=== PATIENT | male | born 1945 | race Caucasian/White ===

== ENCOUNTER 2016-07-07 15:02 | Inpatient (IN) | payer MEDICARE, OTHER ==
[2016-07-07] MEDS ORDERED: IOPAMIDOL 370 (76%) 100 ML VIAL IV ONE (15:03)
[2016-07-07] MEDS ORDERED: IPRATROPIUM BROMIDE 0.5 MG/2.5 ML DOSE ONE (15:09)
[2016-07-07] MEDS ORDERED: ALBUTEROL SULFATE 5MG/ML INHALANT 20 ML BOT ONE (15:09)
[2016-07-07] MEDS ORDERED: SODIUM CL FOR INHALATION 3 ML DOSE ONE (15:10)
--- NOTE | 2016-07-07 15:35 | RAD ---
Exam: Portable chest COMPARISON: None INDICATION: Shortness of breath. Findin semierect AP portable views of the chest demonstrate findings of underlying obstructive airways disease. Cardiac silhouette is within normal limits. There is no focal airspace disease or pleural effusion. No pneumothorax is identified. Bones of the chest wall are intact. IMPRESSION: Obstructive airways disease, however no acute pulmonary process is identified.
[2016-07-07 15:43] LABS: ABSOLUTE NEUTROPHIL COUNT 7.9 K/mm3 (1.8-7.7); BASO # 0.1 K/mm3 (0.0-0.2); BASO % 0.5 % (0.2-1.0); EOS # 0.3 (0.0-0.5); EOS % 2.5 % (0.9-2.9); HEMATOCRIT 35.4 % (32.0-52.0); HEMOGLOBIN 11.1 gm/l (14.0-18.0); IMM NEUT% 0.4 % (0-1); LYMPH # 1.7 (1.0-4.8); MEAN CELL VOLUME 87.6 fl (80.0-94.0); MEAN CORPUSCULAR HEMOGLOBIN 27.5 pg (27.0-31.0); MEAN CORPUSCULAR HGB CONC 31.4 g/dl (33.0-37.0); MEAN PLATELET VOLUME 10.1 fl (7.4-10.4); MONO # 1.2 (0.0-0.8); MONO % 10.4 % (4-12); NEUT % 71.2 % (43-75); PLATELET COUNT 438 K/mm3 (130-400); RED CELL DISTRIBUTION WIDTH 12.9 % (11.5-14.5)
[2016-07-07 16:04] LABS: ALB/GLOB RATIO 1.3 (>1.0); ALBUMIN 4.4 gm/dL (3.5-5.7); CALCIUM 9.2 mg/dL (8.6-10.3)
[2016-07-07] MEDS ORDERED: MAGNESIUM SULFATE 1 G/100 ML 200 ML IV ONE (16:18)
[2016-07-07] MEDS ORDERED: METHYLPRED SOD SUCCINATE 125 MG VIAL ONE (16:27)
[2016-07-07 16:38] LABS: ARTERIAL BLOOD GAS BASE EXCESS -5.3 mmol/L (-2.0-2.0); ARTERIAL BLOOD GAS HCO3 20.9 mmol/L (22.0-28.0); ARTERIAL BLOOD GAS PCO2 43.7 mmHg (35.0-45.0); ARTERIAL BLOOD GAS PO2 91.3 mmHg (80.0-90.0); ARTERIAL BLOOD GAS pH 7.298 (7.350-7.450)
--- NOTE | 2016-07-07 17:50 | CT ---
CTA CHEST FOR PE COMPARISON: Portable chest x-ray, 07/07/2016 HISTORY: Shortness of breath. Technique: Intravenous injection 80 mL [id number]-370. Using a [employer] Aquilion [address] scanner, following a CT angiogram protocol, images obtained through the thorax. Under concurrent supervision and interpretation, requiring a separate 3-D workstation, the technologist created 3-D CT angiograms. An automated dose reduction technique was used to minimize patient radiation dose. Dose information: CTDIvol (mGy): 7.70, 119.10, 10.60 DLP(mGycm): 481.70 FINDINGS: Pulmonary arteries and veins: Excellent contrast opacification. No pulmonary embolism. Aorta: Normal Heart and coronary arteries: Atherosclerotic calcification. Lungs: Severe emphysema. Scarring in the right lung apex. No mass. No infiltrate. Trachea and bronchi: Normal. Mediastinum and dannie: Normal. Pleura and pericardium: Normal. Chest wall: Normal. Spine: Old compression fractures of T9 and L1. Upper abdomen:Normal. 3-D CT angiogram: Normal. IMPRESSION: 1. CT pulmonary negative for pulmonary embolism. 2. Severe emphysema with scarring in the right lung apex. No mass or infiltrate. 3. Old compression fractures of the T9 and L1 vertebral bodies. The report was sent to the emergency department electronic medical record system 07/07/2016 at 17:51
[2016-07-07] MEDS ORDERED: LACTATED RINGERS 1,000 ML ONE (17:54)
[2016-07-07] MEDS ORDERED: AZITHROMYCIN 500 MG VIAL ONE (18:19)
[2016-07-07] MEDS ORDERED: SODIUM CHLORIDE 0.9% 250 ML IV ONE (18:20)
[2016-07-07] MEDS ORDERED: PNEUMOCOCCAL 23-VAL P-SAC VAC 0.5 ML VIAL IM V ONE (21:03)
[2016-07-07] MEDS ORDERED: ACETAMINOPHEN 325 MG TABLET PO PRN (21:20)
[2016-07-07] MEDS ORDERED: SODIUM CHLORIDE 0.9% 100 ML IV PRN (21:20)
[2016-07-07] MEDS ORDERED: MAGNESIUM HYDROXIDE 30 ML UDCUP PO PRN (21:20)
[2016-07-07] MEDS ORDERED: MENTHOL/CETYLPYRD 1 EACH LOZENGE PO PRN (21:20)
[2016-07-07] MEDS ORDERED: BISACODYL 10 MG SUP PR PRN (21:20)
[2016-07-07] MEDS ORDERED: BISACODYL 5 MG TABLET.EC PO PRN (21:20)
[2016-07-07] MEDS ORDERED: BLISTEX LIPSTICK 1 EACH TP PRN (21:20)
[2016-07-07] MEDS ORDERED: ONDANSETRON 4 MG/2ML 2 ML VIAL IV PRN (21:24)
[2016-07-07] MEDS ORDERED: PUMP TUBING ONE (22:08)
[2016-07-07] MEDS: SENNA/DOCUSATE SODIUM 8.6/50 MG EACH TABLET PO SCH (22:25)
[2016-07-07] MEDS: ENOXAPARIN SODIUM 30 MG/0.3 ML SYRINGE SUB-Q SCH (22:25)
[2016-07-07] MEDS: FLUTICASONE/SALMETEROL 250/50 14 PUFFS/DISK IH SCH (22:26)
[2016-07-07] MEDS: ACETAMINOPHEN 325 MG TABLET PO SCH (22:27)
[2016-07-07] MEDS: MELATONIN 3 MG TABLET PO PRN (22:27)
[2016-07-07] MEDS: DIPHENHYDRAMINE HCL 25 MG CAPSULE PO SCH (22:27)
[2016-07-07] MEDS: PANTOPRAZOLE 40 MG TABLET DR PO SCH (22:28)
[2016-07-07] MEDS: GABAPENTIN 100 MG CAPSULE PO SCH (22:28)
[2016-07-07] MEDS: SODIUM CHLORIDE 0.9% 1,000 ML IV SCH (22:29)
[2016-07-07] MEDS: DOCUSATE SODIUM 100 MG CAPSULE PO SCH (22:29)
[2016-07-07] MEDS: MIRTAZAPINE 15 MG TABLET PO SCH (22:29)
[2016-07-08] MEDS: METHYLPRED SOD SUCCINATE 40 MG VIAL IV SCH ×4 (00:40→17:22)
[2016-07-08] MEDS: ALBUTEROL NEB 2.5 MG/3 ML VIAL.NEB NEB PRN ×2 (03:41→18:32)
[2016-07-08 05:09] VITALS: BMI 20.3
[2016-07-08 05:49] LABS: HEMATOCRIT 27.5 % (32.0-52.0); HEMOGLOBIN 8.6 gm/l (14.0-18.0); MEAN CELL VOLUME 87.3 fl (80.0-94.0); MEAN CORPUSCULAR HEMOGLOBIN 27.3 pg (27.0-31.0); MEAN CORPUSCULAR HGB CONC 31.3 g/dl (33.0-37.0)
[2016-07-08 06:16] LABS: ALB/GLOB RATIO 1.4 (>1.0); ALBUMIN 3.5 gm/dL (3.5-5.7); CALCIUM 8.5 mg/dL (8.6-10.3)
--- NOTE | 2016-07-08 06:53 | HP ---
Meir Palmer ADMIT DATE: 07/07/2016 CHIEF COMPLAINT: Shortness of breath. HISTORY OF PRESENT ILLNESS: Meir is a 70-year-old male with known severe chronic obstructive pulmonary disease/emphysema. He is a resident at [facility]. Today earlier he had onset of shortness of breath that was unresponsive to his nebulizers, so he came to the emergency room for evaluation. In the emergency room he was found to be in respiratory distress. He was treated with aggressive nebulizers, Solu-Medrol, and eventually IV magnesium as well which did seem to calm his symptoms. Workup was for the most part negative otherwise and it was felt that he was having a chronic obstructive pulmonary disease exacerbation. It was elected to admit him to the hospitalist service. REVIEW OF SYSTEMS: As noted above otherwise, negative. PAST MEDICAL HISTORY: 1. Chronic obstructive pulmonary disease/emphysema. 2. Chronic kidney disease stage III with a baseline creatinine around 2.0. 3. 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 Last [facility] evaluation was scored at 15/30, this was in September 2015. 4. History of multiple strokes in the past, further details unavailable. 5. Hypertension. 6. Longstanding alcoholism, though he has had no alcohol since September 2015. 7. 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 8. Depression. 9. Insomnia. 10. Benign prostatic hypertrophy. PAST SURGICAL HISTORY: 1. Nephrectomy due to donating a kidney to a relative, this was in the distant past. 2. Lumbar spine surgery. ALLERGIES: No known drug allergies. CURRENT MEDICATIONS: 1. Mirtazapine 7.5 mg by mouth at bedtime. 2. Melatonin 3 mg by mouth at bedtime. 3. Neurontin 100 mg by mouth at bedtime. 4. Diphenhydramine 50 mg by mouth at bedtime. 5. Senna/docusate 2 tablets by mouth twice daily. 6. Tylenol 650 by mouth at bedtime. 7. Omeprazole 20 mg by mouth twice daily. 8. Hydrochlorothiazide/triameterene 50/75 one by mouth daily. 9. Advair 250/50 one inhaled twice daily. 10. MiraLax 17 gm by mouth daily. 11. Mucinex 600 mg by mouth daily. 12. Boost supplement daily. 13. Folate 1 mg by mouth daily. 14. Aspirin 81 mg by mouth daily. 15. Amlodipine 5 mg by mouth daily. SOCIAL HISTORY: He has about a 90 pack year history of smoking, though he quit back in 05/23. He is a resident of [facility] and has been for about the last six months. Prior to that he lived in his own house up in [place] near [place]. 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 OBJECTIVE: VITAL SIGNS: Blood pressure 168/81, pulse is in the 90's, O2 sat 96% on 1 liter, respirations 20 and unlabored. GENERAL: A thin elderly male. At the time I examine him he is calm, bad speaking in false sentences, in no acute distress. HEENT: Normocephalic, atraumatic. Tympanic membranes intact. Oropharynx moist. NECK: Supple. No jugular venous distention. LUNGS: He has distant sounds in all snowden bilaterally, but no wheezes, rales, or rhonchi. HEART: Regular rate and rhythm. ABDOMEN: Soft, nontender, nondistended. No rebound or guarding. EXTREMITIES: No edema. LABORATORY: CBC with a white count of 11.1, hemoglobin 11.1, hematocrit 35.4, platelets 438. Chemistry panel, sodium 129, potassium 5.1, chloride 96, carbon dioxide 25, BUN of 33, creatinine 2.0, glucose of 113, magnesium 2.6. Total bilirubin 0.2, AST 21, ALT 18, alk phos 101. CK-MB of 5.2. ABG with a pH of 7.29, PO2 of 91.3, pCO2 of 43.8, lactate of 0.7. Urinalysis is pending. DIAGNOSTICS: CT angiogram of the chest is negative for pulmonary emboli, shows severe emphysema and some chronic old compression fractures at T9 and L1. ASSESSMENT: 1. Chronic obstructive pulmonary disease exacerbation. 2. Mild hyponatremia. 3. Mild hyperkalemia. 4. Multiple other chronic medical problems at baseline including chronic kidney disease stage III, dementia, hypertension, peripheral neuropathy. PLAN: He is [place] [facility] Will continue with the IV Solu-Medrol, IV azithromycin, nebulizers and supportive care as needed. Will continue with his regular medications as above. Lovenox for deep venous thrombosis prophylaxis. Further care is dictated by clinic course. JOB: [id number] CC: Dr. Nima Dwyer
[2016-07-08] MEDS: ALBUTEROL/IPRATROPIUM 2.5/0.5 MG 3 ML/EACH DOSE NEB SCH ×4 (08:08→20:45)
[2016-07-08] MEDS: SENNA/DOCUSATE SODIUM 8.6/50 MG EACH TABLET PO SCH ×2 (09:00→20:14)
[2016-07-08] MEDS: SODIUM CHLORIDE 0.9% 1,000 ML IV SCH ×3 (09:17→14:36)
[2016-07-08] MEDS: GUAIFENESIN 600 MG TABLET.DR PO SCH (09:18)
[2016-07-08] MEDS: FOLIC ACID 1 MG TABLET PO SCH (09:18)
[2016-07-08] MEDS: ASPIRIN (ENTERIC COATED) 81 MG TABLET.EC PO SCH (09:18)
[2016-07-08] MEDS: AMLODIPINE BESYLATE 5 MG TABLET PO SCH (09:18)
[2016-07-08] MEDS: PANTOPRAZOLE 40 MG TABLET DR PO SCH ×2 (09:18→20:14)
[2016-07-08] MEDS: DOCUSATE SODIUM 100 MG CAPSULE PO SCH ×2 (09:18→20:14)
--- NOTE | 2016-07-08 09:52 | PDOC43 ---
- Subjective Chief Complaint: SOB Feeling better this AM but still SOB and weak. Subjective: Reports Tolerating Diet Well, Reports Adequate Oral Intake, Denies Chest Pain, Denies Abdominal Pain, Denies Nausea, Denies Vomiting, Denies Fever , Denies Chills - Objective Vital Signs Temperature 97.7 F 07/08/16 07:40 Pulse Rate 85 07/08/16 08:09 Respiratory Rate 26 07/08/16 08:09 Blood Pressure 104/60 07/08/16 07:40 O2 Saturation by Pulse Oximetry 92 07/08/16 08:09 Oxygen Delivery Method Room Air Oxygen Flow Rate 0 Intake and Output 07/07/16 07/08/16 07/09/16 06:59 06:59 06:59 Intake Total 2293 Output Total 425 Balance 1868 General: Alert, Oriented x3, Cooperative, No Acute Distress HEENT: Atraumatic Lungs: Clear to Auscultation Bilaterally, Other (Poor air movement all snowden B. ) Cardiovascular: Regular Rate and Rhythm Abdomen: Soft, Normal Bowel Sounds, Non-Distended, No Tenderness Extremities: Normal Pulses, No Edema, No Tenderness Laboratory 07/08/16 05:30 07/08/16 05:30 Laboratory Tests 07/08/16 05:30 Total Bilirubin 0.2 AST 15 ALT 12 Alkaline Phosphatase 75 Troponin I < 0.01 Current Medications: Current meds reviewed in EMR. - Problems: Assessment/Plan (1) COPD (chronic obstructive pulmonary disease) Qualifiers: COPD type: COPD with acute exacerbation Qualifier Code: (J44.1) Chronic obstructive pulmonary disease with (acute) exacerbation Status: AcuteAssessment/Plan: Acute flare at admit with hypoxic respiratory failure. Much improved this AM. Con't steroids, nebs, azithro, supportive care. (2) CKD (chronic kidney disease) stage 3, GFR 30-59 ml/min Status: ChronicAssessment/Plan: At baseline. Single kidney status d/t donating in distant past. Avoid nephrotoxic agents. (3) ETOHism Status: ChronicAssessment/Plan: In remission. Complicated by dementia and peripheral neuropathy presumed d/t etoh. No h/o withdrawal. (4) Dementia Qualifiers: Dementia behavioral disturbance: without behavioral disturbance Status: ChronicAssessment/Plan: As above. (5) Peripheral neuropathy Qualifiers: Peripheral neuropathy type: polyneuropathy, unspecified Qualifier Code : (G62.9) Polyneuropathy, unspecified Status: ChronicAssessment/Plan: As above. (6) HTN (hypertension) Qualifiers: Hypertension type: essential hypertension Qualifier Code: (I10) Essential (primary) hypertension Status: ChronicAssessment/Plan: Stable on usual amlodipine. (7) Depression Qualifiers: Depression Type: unspecified Qualifier Code: (F32.9) Major depressive disorder, single episode, unspecified Status: ChronicAssessment/Plan: Stable. Con't usual regimen. VTE Prophylaxis: Lovenox. Disposition: Anticipate d/c to SNF in 1-2 days.
[2016-07-08] MEDS ORDERED: PUMP TUBING ONE ×3 (11:34→17:38)
[2016-07-08] MEDS: FLUTICASONE/SALMETEROL 250/50 14 PUFFS/DISK IH SCH ×2 (12:59→22:02)
[2016-07-08] MEDS: POLYETHYLENE GLYCOL 3350 17 G POWD.SUSP PO SCH (13:00)
[2016-07-08] MEDS ORDERED: IV START KIT ONE (14:07)
[2016-07-08] MEDS ORDERED: SODIUM CHLORIDE 0.9% FLUSH 10 ML ONE (14:07)
[2016-07-08] MEDS ORDERED: AZITHROMYCIN 500 MG in SODIUM CHLORIDE 0.9% 250 ML IV SCH (17:30)
[2016-07-08] MEDS ORDERED: DIPHENHYDRAMINE HCL 50 MG/1 ML VIAL IV PRN (17:35)
--- NOTE | 2016-07-08 17:39 | PDOC36 ---
Provider Note Subject: Medication reaction Note: Patient had flushing and facial rash develop shortly after starting Azithromycin IV. Med stopped, allergy recorded, changed to doxycycline for treatment of COPD exacerbation.
[2016-07-08] MEDS: DOXYCYCLINE HYCLATE 100 MG in NS 0.9% (MINI-BAG PLUS) 100 ML IV SCH (18:27)
[2016-07-08] MEDS: MIRTAZAPINE 15 MG TABLET PO SCH (20:13)
[2016-07-08] MEDS: GABAPENTIN 100 MG CAPSULE PO SCH (20:14)
[2016-07-08] MEDS: ACETAMINOPHEN 325 MG TABLET PO SCH (20:15)
[2016-07-08] MEDS: ENOXAPARIN SODIUM 30 MG/0.3 ML SYRINGE SUB-Q SCH (22:03)
[2016-07-08] MEDS: MELATONIN 3 MG TABLET PO PRN (22:03)
[2016-07-08] MEDS: DIPHENHYDRAMINE HCL 25 MG CAPSULE PO SCH (22:04)
[2016-07-09] MEDS: METHYLPRED SOD SUCCINATE 40 MG VIAL IV SCH ×4 (00:37→18:01)
[2016-07-09] MEDS: DOXYCYCLINE HYCLATE 100 MG in NS 0.9% (MINI-BAG PLUS) 100 ML IV SCH ×2 (06:10→18:02)
[2016-07-09 06:13] LABS: HEMATOCRIT 26.3 % (32.0-52.0); HEMOGLOBIN 8.4 gm/l (14.0-18.0); MEAN CELL VOLUME 86.5 fl (80.0-94.0); MEAN CORPUSCULAR HEMOGLOBIN 27.6 pg (27.0-31.0); MEAN CORPUSCULAR HGB CONC 31.9 g/dl (33.0-37.0); RED CELL DISTRIBUTION WIDTH 13.2 % (11.5-14.5)
[2016-07-09] MEDS: ALBUTEROL NEB 2.5 MG/3 ML VIAL.NEB NEB PRN ×2 (06:16→08:07)
[2016-07-09 06:32] LABS: ALB/GLOB RATIO 1.4 (>1.0); ALBUMIN 3.3 gm/dL (3.5-5.7); CALCIUM 8.3 mg/dL (8.6-10.3)
[2016-07-09] MEDS: SODIUM CHLORIDE 0.9% 1,000 ML IV SCH ×2 (08:01→08:30)
[2016-07-09] MEDS: ALBUTEROL/IPRATROPIUM 2.5/0.5 MG 3 ML/EACH DOSE NEB SCH ×4 (08:30→20:24)
[2016-07-09] MEDS: POLYETHYLENE GLYCOL 3350 17 G POWD.SUSP PO SCH (09:09)
[2016-07-09] MEDS: FLUTICASONE/SALMETEROL 250/50 14 PUFFS/DISK IH SCH ×2 (09:09→21:35)
[2016-07-09] MEDS: GUAIFENESIN 600 MG TABLET.DR PO SCH (09:10)
[2016-07-09] MEDS: FOLIC ACID 1 MG TABLET PO SCH (09:10)
[2016-07-09] MEDS: DOCUSATE SODIUM 100 MG CAPSULE PO SCH ×2 (09:10→21:36)
[2016-07-09] MEDS: PANTOPRAZOLE 40 MG TABLET DR PO SCH ×2 (09:10→21:36)
[2016-07-09] MEDS: ASPIRIN (ENTERIC COATED) 81 MG TABLET.EC PO SCH (09:10)
[2016-07-09] MEDS: SENNA/DOCUSATE SODIUM 8.6/50 MG EACH TABLET PO SCH ×2 (09:10→21:36)
[2016-07-09] MEDS: AMLODIPINE BESYLATE 5 MG TABLET PO SCH (09:14)
--- NOTE | 2016-07-09 11:41 | PDOC43 ---
- Subjective Chief Complaint: SOB per pt doing ok now. he notes a bad flare with SOB and cough this am which he states scared him. was as bad as when he came in. neb was helpful. he requests ability to use his inhaler from home, but is on nebs scheduled and PRN. he is asking for them regularly he states. no issues with diet. he is feeling constipated and requests suppository. he states this at home typically gets him to go. Subjective: Reports Pain Tolerable, Reports Tolerating Diet Well, Reports Adequate Oral Intake, Reports Flatus, Reports Urinating Without Difficulty, Reports Shortness of Breath, Reports Cough, Denies Bowel Movement, Denies Chest Pain, Denies Abdominal Pain, Denies Nausea, Denies Vomiting, Denies Fever, Denies Chills - Objective Vital Signs Temperature 97.5 F 07/09/16 07:00 Pulse Rate 87 07/09/16 08:30 Respiratory Rate 20 07/09/16 08:30 Blood Pressure 94/58 07/09/16 07:00 O2 Saturation by Pulse Oximetry 96 07/09/16 08:30 Oxygen Delivery Method Room Air Oxygen Flow Rate 0 Intake and Output 07/07/16 07/08/16 07/09/16 23:59 23:59 23:59 Intake Total 2293 1341 Output Total 425 767 Balance -425 2293 574 General: Alert, Oriented x3, Cooperative, No Acute Distress HEENT: Atraumatic, Mucous membr. moist/pink Lungs: No Clear to Auscultation Bilaterally (difuse severe decreased breath sounds and wheezing throughout), No Normal Air Movement Cardiovascular: Regular Rate and Rhythm, Normal S1, Normal S2, No Murmur Abdomen: Soft, Normal Bowel Sounds, Non-Distended, No Tenderness Extremities: No Cyanosis, No Edema, No Tenderness Skin: Warm, Dry, Intact Neurological: Normal Speech Psych/Mental Status: Normal Affect, Normal Mood Laboratory 07/09/16 05:30 07/09/16 05:30 07/09/16 05:30 RBC 3.04 L MCHC 31.9 L BUN 37 H Estimated GFR 40 L Calcium 8.3 L Total Protein 5.6 L Albumin 3.3 L Current Medications: Current meds reviewed in EMR. - Problems: Assessment/Plan (1) COPD (chronic obstructive pulmonary disease) Qualifiers: COPD type: COPD with acute exacerbation Qualifier Code: (J44.1) Chronic obstructive pulmonary disease with (acute) exacerbation Status: AcuteAssessment/Plan: Acute flare at admit with hypoxic respiratory failure. Much improved with a flare this AM. Con't steroids, nebs, supportive care. had a rash after 2nd dose of azithro, so now on doxy. (2) CKD (chronic kidney disease) stage 3, GFR 30-59 ml/min Status: ChronicAssessment/Plan: At baseline. Single kidney status d/t donating in distant past. Avoid nephrotoxic agents. (3) Dementia Qualifiers: Dementia behavioral disturbance: without behavioral disturbance Status: ChronicAssessment/Plan: As above. (4) ETOHism Status: ChronicAssessment/Plan: In remission. Complicated by dementia and peripheral neuropathy presumed d/t etoh. No h/o withdrawal. lives at [facility] (5) Peripheral neuropathy Qualifiers: Peripheral neuropathy type: polyneuropathy, unspecified Qualifier Code : (G62.9) Polyneuropathy, unspecified Status: ChronicAssessment/Plan: As above. (6) Depression Qualifiers: Depression Type: unspecified Qualifier Code: (F32.9) Major depressive disorder, single episode, unspecified Status: ChronicAssessment/Plan: Stable. Con't usual regimen. (7) HTN (hypertension) Qualifiers: Hypertension type: essential hypertension Qualifier Code: (I10) Essential (primary) hypertension Status: ChronicAssessment/Plan: Stable on usual amlodipine. VTE Prophylaxis: Lovenox. Disposition: Anticipate d/c to SNF in 2 days.
[2016-07-09] MEDS: ENOXAPARIN SODIUM 40 MG/0.4 ML SYRINGE SUB-Q SCH (21:36)
[2016-07-09] MEDS: ACETAMINOPHEN 325 MG TABLET PO SCH (21:36)
[2016-07-09] MEDS: GABAPENTIN 100 MG CAPSULE PO SCH (21:36)
[2016-07-09] MEDS: MIRTAZAPINE 15 MG TABLET PO SCH (21:37)
[2016-07-10] MEDS: MELATONIN 3 MG TABLET PO PRN ×2 (00:04→23:55)
[2016-07-10] MEDS: METHYLPRED SOD SUCCINATE 40 MG VIAL IV SCH ×5 (00:04→23:55)
[2016-07-10] MEDS: DIPHENHYDRAMINE HCL 25 MG CAPSULE PO SCH ×2 (00:04→23:55)
[2016-07-10] MEDS: ALBUTEROL NEB 2.5 MG/3 ML VIAL.NEB NEB PRN ×2 (00:18→07:36)
[2016-07-10] MEDS: SODIUM CHLORIDE 0.9% 1,000 ML IV SCH (03:10)
[2016-07-10] MEDS: DOXYCYCLINE HYCLATE 100 MG in NS 0.9% (MINI-BAG PLUS) 100 ML IV SCH ×2 (06:22→18:01)
--- NOTE | 2016-07-10 07:08 | PDOC43 ---
- Subjective Chief Complaint: SOB pt doing well per report. he had some SOB last night, resolved with neb. fluids DCed as well. he feels better this AM. no new issues. coughing improved Subjective: Reports Pain Tolerable, Reports Tolerating Diet Well, Reports Adequate Oral Intake, Reports Bowel Movement, Reports Urinating Without Difficulty, Reports Shortness of Breath, Reports Cough, Denies Chest Pain, Denies Abdominal Pain, Denies Nausea, Denies Vomiting, Denies Fever, Denies Chills - Objective Vital Signs Temperature 97.3 F 07/10/16 00:52 Pulse Rate 80 07/10/16 05:00 Respiratory Rate 16 07/10/16 05:00 Blood Pressure 107/60 07/10/16 05:00 O2 Saturation by Pulse Oximetry 95 07/10/16 05:00 Oxygen Delivery Method Room Air Oxygen Flow Rate 0 Intake and Output 07/08/16 07/09/16 07/10/16 23:59 23:59 23:59 Intake Total 2293 2767 1500 Output Total 1517 700 Balance 2293 1250 800 General: Alert, Oriented x3, Cooperative, No Acute Distress HEENT: Atraumatic, Mucous membr. moist/pink Lungs: No Clear to Auscultation Bilaterally (decreased BL throughout. improved from yesterday. wheezing diffuse), No Normal Air Movement Cardiovascular: Regular Rate and Rhythm, Normal S1, Normal S2, No Murmur Abdomen: Soft, Normal Bowel Sounds, Non-Distended, No Tenderness Neurological: Normal Speech Psych/Mental Status: Normal Affect, Normal Mood Laboratory 07/09/16 05:30 07/09/16 05:30 Current Medications: Current meds reviewed in EMR. - Problems: Assessment/Plan (1) COPD (chronic obstructive pulmonary disease) Qualifiers: COPD type: COPD with acute exacerbation Qualifier Code: (J44.1) Chronic obstructive pulmonary disease with (acute) exacerbation Status: AcuteAssessment/Plan: Acute flare at admit with hypoxic respiratory failure. Much improved with a flare this AM. Con't steroids, nebs, supportive care. had a rash after 2nd dose of azithro, so now on doxy. (2) CKD (chronic kidney disease) stage 3, GFR 30-59 ml/min Status: ChronicAssessment/Plan: At baseline. Single kidney status d/t donating in distant past. Avoid nephrotoxic agents. (3) Dementia Qualifiers: Dementia behavioral disturbance: without behavioral disturbance Status: ChronicAssessment/Plan: As above. (4) ETOHism Status: ChronicAssessment/Plan: In remission. Complicated by dementia and peripheral neuropathy presumed d/t etoh. No h/o withdrawal. lives at [facility] (5) Peripheral neuropathy Qualifiers: Peripheral neuropathy type: polyneuropathy, unspecified Qualifier Code : (G62.9) Polyneuropathy, unspecified Status: ChronicAssessment/Plan: As above. (6) Depression Qualifiers: Depression Type: unspecified Qualifier Code: (F32.9) Major depressive disorder, single episode, unspecified Status: ChronicAssessment/Plan: Stable. Con't usual regimen. (7) HTN (hypertension) Qualifiers: Hypertension type: essential hypertension Qualifier Code: (I10) Essential (primary) hypertension Status: ChronicAssessment/Plan: Stable on usual amlodipine. VTE Prophylaxis: Lovenox. Disposition: Anticipate d/c to SNF tomorrow.
[2016-07-10] MEDS: ALBUTEROL/IPRATROPIUM 2.5/0.5 MG 3 ML/EACH DOSE NEB SCH ×4 (08:29→20:18)
--- NOTE | 2016-07-10 10:11 | PDOC36 ---
Provider Note Subject: addition of medication Note: discussion in sign out today covered some of his anxiety when COPD flares, and that control of the anxiety may help in his management of COPD. given his age and dementia, want to avoid opiates or benzos if possible. will trial buapr 7.5mg BID to see if this helps his anxiety some.
[2016-07-10] MEDS ORDERED: IV START KIT ONE (10:39)
[2016-07-10] MEDS: AMLODIPINE BESYLATE 5 MG TABLET PO SCH (10:42)
[2016-07-10] MEDS: POLYETHYLENE GLYCOL 3350 17 G POWD.SUSP PO SCH (10:42)
[2016-07-10] MEDS: DOCUSATE SODIUM 100 MG CAPSULE PO SCH ×2 (10:42→22:06)
[2016-07-10] MEDS: ASPIRIN (ENTERIC COATED) 81 MG TABLET.EC PO SCH (10:42)
[2016-07-10] MEDS: GUAIFENESIN 600 MG TABLET.DR PO SCH (10:42)
[2016-07-10] MEDS: SENNA/DOCUSATE SODIUM 8.6/50 MG EACH TABLET PO SCH ×2 (10:43→22:06)
[2016-07-10] MEDS: PANTOPRAZOLE 40 MG TABLET DR PO SCH ×2 (10:43→22:06)
[2016-07-10] MEDS: FOLIC ACID 1 MG TABLET PO SCH (10:43)
[2016-07-10] MEDS: FLUTICASONE/SALMETEROL 250/50 14 PUFFS/DISK IH SCH ×2 (10:46→22:04)
[2016-07-10] MEDS: BUSPIRONE HCL 5 MG TABLET PO SCH ×2 (11:54→22:05)
[2016-07-10] MEDS ORDERED: PUMP TUBING ONE (17:55)
[2016-07-10] MEDS: ENOXAPARIN SODIUM 40 MG/0.4 ML SYRINGE SUB-Q SCH (22:04)
[2016-07-10] MEDS: MIRTAZAPINE 15 MG TABLET PO SCH (22:05)
[2016-07-10] MEDS: ACETAMINOPHEN 325 MG TABLET PO SCH (22:06)
[2016-07-10] MEDS: GABAPENTIN 100 MG CAPSULE PO SCH (22:06)
[2016-07-11] MEDS: ALBUTEROL NEB 2.5 MG/3 ML VIAL.NEB NEB PRN ×2 (00:27→04:41)
[2016-07-11] MEDS: METHYLPRED SOD SUCCINATE 40 MG VIAL IV SCH (05:50)
[2016-07-11] MEDS: DOXYCYCLINE HYCLATE 100 MG in NS 0.9% (MINI-BAG PLUS) 100 ML IV SCH (05:55)
[2016-07-11] MEDS: ALBUTEROL/IPRATROPIUM 2.5/0.5 MG 3 ML/EACH DOSE NEB SCH ×2 (08:06→14:02)
[2016-07-11] MEDS: POLYETHYLENE GLYCOL 3350 17 G POWD.SUSP PO SCH (08:30)
[2016-07-11] MEDS: PANTOPRAZOLE 40 MG TABLET DR PO SCH (08:30)
[2016-07-11] MEDS: FLUTICASONE/SALMETEROL 250/50 14 PUFFS/DISK IH SCH (08:30)
[2016-07-11] MEDS: FOLIC ACID 1 MG TABLET PO SCH (08:31)
[2016-07-11] MEDS: BUSPIRONE HCL 5 MG TABLET PO SCH (08:31)
[2016-07-11] MEDS: AMLODIPINE BESYLATE 5 MG TABLET PO SCH (08:31)
[2016-07-11] MEDS: SENNA/DOCUSATE SODIUM 8.6/50 MG EACH TABLET PO SCH (08:31)
[2016-07-11] MEDS: ASPIRIN (ENTERIC COATED) 81 MG TABLET.EC PO SCH (08:31)
[2016-07-11] MEDS: DOCUSATE SODIUM 100 MG CAPSULE PO SCH (08:31)
[2016-07-11] MEDS: GUAIFENESIN 600 MG TABLET.DR PO SCH (09:09)
[2016-07-11] MEDS ORDERED: SODIUM POLYSTYRENE SULFONATE 15 G/60 ML BOT PO ONE (10:28)
[2016-07-11] MEDS ORDERED: PREDNISONE 20 MG TABLET PO SCH (10:30)
[2016-07-11 12:53] VITALS: BP 136/88
--- NOTE | 2016-07-12 06:27 | DS ---
Meir Palmer [id number] DATE OF ADMISSION: 07/07/2016 DATE OF DISCHARGE: 07/11/2016 DISCHARGE DIAGNOSES: 1. Acute exacerbation of chronic obstructive pulmonary disease with acute bacterial bronchitis. 2. Chronic stage III kidney disease. 3. Senile dementia without behavioral disturbance. 4. History of alcoholism current in remission complicated by dementia and peripheral neuropathy. 5. Chronic depression. 6. Chronic essential hypertension. 7. Hyperkalemia. TO SUMMARIZE THE ADMISSION AND HOSPITAL COURSE: The patient is a 70-year-old male with medical problems as listed above who presented with complaints of worsening shortness of breath symptoms and cough. In the emergency department, he was in respiratory distress and responded to bronchodilators and Solu-Medrol. A CT angiogram of the chest showed evidence of severe emphysema, but no infiltrates or embolism. Initial white blood cell count was elevated at 11.1. Creatinine was 2.0 which is consistent with his baseline creatinine. He had an arterial blood gas showing a pH of 7.29, a pO2 of 91, pCO2 of 43, lactate was normal. He was admitted to the intermediate care unit. He was treated with doxycycline and Solu-Medrol. His initial potassium level was mildly elevated at 5.1. His hospital course was uncomplicated. He was seen by physical therapy and occupational therapy and given the ongoing weakness was recommended that he get rehab at a longterm facility setting to enable him to return to his assisted living setting at [facility]. By July 11 he was felt to be medically stable for discharge. He had some persistent hyperkalemia during his stay and was given a dose of Kayexalate prior to discharge. He had his Maxide discontinued and replaced with hydrochlorothiazide. PHYSICAL EXAMINATION: VITALS: At discharge showed a temperature of 98.1, pulse 96, blood pressure 136/88, respirations 20, oxygen saturation 96% on room air. Body mass index 20.4, weight 71.9 kg. GENERAL: This is a elderly male in no acute distress. HEENT: Unremarkable. LUNGS: Clear to auscultation except for some scattered wheezes bilaterally. CARDIOVASCULAR: Reveals a regular rate and rhythm without a murmur. ABDOMEN: Soft, nontender, nondistended with positive bowel sounds. EXTREMITIES: Show no peripheral edema. NEUROLOGIC: Nonfocal. LABORATORY: On the day of discharge showed a CBC with a white count of 10.2 measured on July 09 and hemoglobin of 8.4 at that time. His chemistry profile done last on July 09 showed a sodium of 132 and a potassium of 5.3, BUN 37, creatinine 1.7. DISPOSITION: [facility]. DISCHARGE CONDITION: Good. CODE STATUS: Full code. ALLERGIES: ZITHROMAX. ACTIVITY: He will get skin care, bowel care, podiatry care per house protocol. He will get physical therapy and occupational therapy services, evaluate and treat, weightbearing as tolerated. Activity as tolerated. VACCINATIONS: He had a pneumococcal vaccination on 07/08/2016 and is up to date on his flu vaccination. DISCHARGE MEDICATIONS: 1. He will discontinue Maxide and start hydrochlorothiazide [address] its place. 2. He will continue doxycycline 100 mg twice daily for 7 more days. 3. He will take a prednisone taper 40 mg daily for 2 more days, then 20 mg daily for 3 days, and then 10 mg daily for 4 days. 4. He will continue Norvasc 5 mg daily. 5. Aspirin 81 mg daily. 6. Folic acid 1 mg daily. 7. Boost Plus one can daily. 8. Mucinex 600 mg daily. 9. MiraLax 17 gm daily. 10. Advair 250/50 mcg inhaler 1 inhalation twice daily. 11. Prilosec 20 mg twice daily. 12. Tylenol 650 mg at bedtime. 13. Senna Plus stool softener 2 tablets twice daily. 14. Benadryl 50 mg at bedtime. 15. Neurontin 100 mg at bedtime. 16. Melatonin 3 mg at bedtime as needed for sleep. 17. Remeron 7.5 mg at bedtime. 18. Albuterol 2.5 mg nebulized every 4 hours as needed for wheezing. FOLLOW UP: Follow up appointment is scheduled with Dr. Lizy Garcia on July 22 at 10:30 a.m. I scheduled a follow basic metabolic panel to be done in one week to reassess his renal function and his potassium levels after the medication change. JOB: [id number] CC: Dr. Nima Dwyer
== END 2016-07-11 14:35 | DRG 191 ==
LOC: ED 15:02 → ICU 18:36 → MS 07-08 16:10
PROVIDERS: ADMIT Family Medicine; ATTEND Family Medicine
DX: J44.1 Chronic obstructive pulmonary disease with (acute) exacerbation (principal); E87.1 Hypo-osmolality and hyponatremia; J20.9 Acute bronchitis, unspecified; J44.0 Chronic obstructive pulmonary disease with (acute) lower respiratory infection; F10.20 Alcohol dependence, uncomplicated; F03.90 Unspecified dementia, unspecified severity, without behavioral disturbance, psychotic disturbance, mood disturbance, and anxiety; G62.9 Polyneuropathy, unspecified; I12.9 Hypertensive chronic kidney disease with stage 1 through stage 4 chronic kidney disease, or unspecified chronic kidney disease; N18.3 Chronic kidney disease, stage 3 (moderate); F32.9 Major depressive disorder, single episode, unspecified; E87.5 Hyperkalemia